=== PATIENT | female | born 1975 | race Caucasian/White ===

== ENCOUNTER 2016-11-09 00:32 | Emergency (ER) | payer MEDICARE, OTHER ==
[~2016-11-09] VITALS: Ht 167.6 cm; Wt 111.0 kg
[~2016-11-09 00:32] MED LIST: ASEN1SUB SL; SOMA350T PO
[2016-11-09 00:40] VITALS: BP 141/63; PULSE 114; RESP 14; TEMP 99.5; O2SAT 98
[2016-11-09] MEDS ORDERED: SOMA350T PO (01:14)
[2016-11-09 01:26] VITALS: BP 130/93; PULSE 109; RESP 18; O2SAT 99
[2016-11-09] MEDS ORDERED: SODIUM CHLORIDE 0.9% FLUSH 10 ML FLUSH IV FLUSH PRN (01:30)
[2016-11-09 01:44] LABS: AUTOMATED NEUTROPHIL # 7.6 TH/MM3 (1.8-7.7); BASOPHIL # 0.1 TH/MM3 (0-0.2); BASOPHIL % 0.9 % (0.0-2.0); EOSINOPHIL # 0.1 TH/MM3 (0-0.4); EOSINOPHIL % 1.1 % (0.0-4.0); HEMATOCRIT 45.1 % (35.0-46.0); HEMO FLAGS DIFF FINAL; LYMPH % 27.9 % (9.0-44.0); LYMPHOCYTE # 3.2 TH/MM3 (1.0-4.8); MEAN CORPUSCULAR HGB CONC 34.3 % (32.0-36.0); MONO % 4.2 % (0.0-8.0); NEUT % 65.9 % (16.0-70.0); PLATELET COUNT 474 TH/MM3 (150-450); RED CELL DISTRIBUTION WIDTH 14.2 % (11.6-17.2); WHITE BLOOD COUNT 11.5 TH/MM3 (4.0-11.0)
--- NOTE | 2016-11-09 01:48 | PD ---
HPI Chief Complaint: Abdominal Pain Time Seen by Provider: 01:20 Travel History International Travel<30 days: No Contact w/Intl Traveler<30days: No Traveled to known affect area: No History of Present Illness HPI This is a 41-year-old female who presents to the emergency department with right lower abdominal pain that's been going on for 3 days, constant, moderate severity, worse with movement, improved with rest, associated with a fever of 102 at home and multiple episodes of vomiting. The patient has a history of ovarian cysts and kidney stones in the past. She says she's never had pain like this before. She also reports that she's had some loose stools. She denies any dysuria, hematuria or vaginal discharge. PFSH Past Medical History Arthritis: Yes (RHEUMATOID) Bipolar Disorder: Yes Anxiety: Yes Depression: Yes Chest Pain: Yes Cerebrovascular Accident: Yes Diminished Hearing: No Genitourinary: Yes (KIDNEY STONES) Kidney Stones: Yes Musculoskeletal: Yes (CHRONIC BACK PAIN, "BLOWN DISCS") Reproductive: Yes (OVARIAN CYSTS) Respiratory: Yes (PULMONARY EMBOLUS) Immunizations Current: Yes Myocardial Infarction: Yes (X2) Schizophrenia: Yes ?: Not LMP: MORE THAN A YEAR PER PT : 0 Para: 0 Past Surgical History Cholecystectomy: Yes Social History Alcohol Use: No Tobacco Use: Yes (1 07/08 PPD) Substance Use: No Allergies-Medications (Allergen,Severity, Reaction): Coded Allergies: Amoxicillin (Verified Allergy, Severe, Hotflash, 11/09/16) Aspirin (Verified Allergy, Severe, Hives, 11/09/16) Compazine (Verified Allergy, Severe, Hives, 11/09/16) Contrast Media (Verified Allergy, Severe, Hives, 11/09/16) Keflex (Verified Allergy, Severe, Hives, 11/09/16) Morphine (Verified Allergy, Severe, Respiratory Failure, 11/09/16) Nitroglycerin (Verified Allergy, Severe, "ITCHY AND SLOW BREATHING", ) Phenergan (Verified Allergy, Severe, Hives, 11/09/16) Reglan (Verified Allergy, Severe, Hives, 11/09/16) Tramadol (Verified Allergy, Severe, Hives, 11/09/16) Uncoded Allergies: NSAIDS (Allergy, Severe, Hives, 05/09/13) Reported Meds & Prescriptions Reported Meds & Active Scripts Active Reported Soma (Carisoprodol) 350 Mg Tab 350 Mg PO QID PRN Review of Systems Except as stated in HPI: all other systems reviewed are Neg Physical Exam Narrative GENERAL:Well appearing, no acute distress SKIN: Focused skin assessment warm and dry. HEAD: Atraumatic. Normocephalic. EYES: Pupils equal and round. No injection or drainage. ENT: Moist mucous membranes NECK: Trachea midline. CARDIOVASCULAR: Tachycardic. No murmur appreciated. RESPIRATORY: Clear to auscultation. Breath sounds equal bilaterally. GASTROINTESTINAL: Abdomen soft, tender to palpation in right lower quadrant with guarding. MUSCULOSKELETAL: No obvious deformities. NEUROLOGICAL: Awake and alert. No obvious cranial nerve deficits. Moving all extremities. PSYCHIATRIC: Appropriate mood and affect; insight and judgment normal. Data Data Last Documented VS Vital Signs Date Time Temp Pulse Resp B/P Pulse Ox O2 Delivery O2 Flow Rate FiO2 11/09/16 01:26 109 18 130/93 99 Room Air 11/09/16 00:40 99.5 Orders Complete Blood Count With Diff (11/09/16 01:25) Comprehensive Metabolic Panel (11/09/16 01:25) Lipase (11/09/16 01:25) Urinalysis - C+S If Indicated (11/09/16 01:25) Iv Access Insert/Monitor (11/09/16 01:25) Ecg Monitoring (11/09/16 01:25) Oximetry (11/09/16 01:25) Sodium Chloride 0.9% Flush (Ns Flush) (11/09/16 01:30) Ed Urine Pregnancytest Poc (11/09/16 01:25) Ct Abd/Pel W/O Iv Contrast (11/09/16 ) Hydromorphone Pf Inj (Dilaudid Pf Inj) (11/09/16 02:00) Urine Culture (11/09/16 02:10) Ciprofloxacin 400 Mg Premix (Cipro 400 M (11/09/16 02:45) Hydromorphone Pf Inj (Dilaudid Pf Inj) (11/09/16 02:45) Ondansetron Inj (Zofran Inj) (11/09/16 02:45) Ns (Bolus) Inj (11/09/16 02:45) Labs Laboratory Tests Test 11/09/16 11/09/16 01:29 02:10 White Blood Count 11.5 TH/MM3 Red Blood Count 4.70 MIL/MM3 Hemoglobin 15.5 GM/DL Hematocrit 45.1 % Mean Corpuscular Volume 96.0 FL Mean Corpuscular Hemoglobin 33.0 PG Mean Corpuscular Hemoglobin 34.3 % Concent Red Cell Distribution Width 14.2 % Platelet Count 474 TH/MM3 Mean Platelet Volume 7.9 FL Neutrophils (%) (Auto) 65.9 % Lymphocytes (%) (Auto) 27.9 % Monocytes (%) (Auto) 4.2 % Eosinophils (%) (Auto) 1.1 % Basophils (%) (Auto) 0.9 % Neutrophils # (Auto) 7.6 TH/MM3 Lymphocytes # (Auto) 3.2 TH/MM3 Monocytes # (Auto) 0.5 TH/MM3 Eosinophils # (Auto) 0.1 TH/MM3 Basophils # (Auto) 0.1 TH/MM3 CBC Comment DIFF FINAL Differential Comment Sodium Level 142 MEQ/L Potassium Level 3.8 MEQ/L Chloride Level 108 MEQ/L Carbon Dioxide Level 23.1 MEQ/L Anion Gap 11 MEQ/L Blood Urea Nitrogen 12 MG/DL Creatinine 0.61 MG/DL Estimat Glomerular Filtration 108 ML/MIN Rate Random Glucose 91 MG/DL Calcium Level 9.5 MG/DL Total Bilirubin 0.2 MG/DL Aspartate Amino Transf 19 U/L (AST/SGOT) Alanine Aminotransferase 28 U/L (ALT/SGPT) Alkaline Phosphatase 114 U/L Total Protein 7.4 GM/DL Albumin 3.8 GM/DL Lipase 261 U/L Urine Color YELLOW Urine Turbidity CLOUDY Urine pH 5.5 Urine Specific Becker 1.029 Urine Protein TRACE mg/dL Urine Glucose (UA) NEG mg/dL Urine Ketones NEG mg/dL Urine Occult Blood TRACE Urine Nitrite NEG Urine Bilirubin NEG Urine Urobilinogen 2.0 MG/DL Urine Leukocyte Esterase SMALL Urine RBC 13 /hpf Urine WBC 22 /hpf Urine Squamous Epithelial 21 /hpf Cells Urine Amorphous Sediment RARE Urine Bacteria MOD /hpf Urine Mucus FEW /lpf Microscopic Urinalysis Comment CULTURE INDICATED MDM Medical Decision Making Medical Screen Exam Complete: Yes Emergency Medical Condition: Yes Interpretation(s) Temperature is 99.5, tachycardic, mild hypertension Mild leukocytosis Hemoconcentration Electrolytes are reassuring Lipase is normal Urinalysis: Some white blood cells, moderate bacteria CT abdomen and pelvis: No appendicitis Differential Diagnosis Appendicitis, urinary tract infection, gastroenteritis, colitis, diverticulitis , cholecystitis Narrative Course This is a 41-year-old female who presents to the emergency department with right lower quadrant abdominal pain. She is placed on a monitor and an IV was established. Labs demonstrate a mild leukocytosis. CT abdomen and pelvis was obtained which was reassuring with no evidence of appendicitis. Patient has no risk factors for pelvic inflammatory disease. Her urinalysis demonstrates some bacteria which is act as the sorts of her symptoms. Patient will be discharged on antibiotics for cystitis Diagnosis Primary Impression: Cystitis Patient Instructions: General Instructions Additional Instructions: If you develop fever, persistent vomiting, back pain, or inability to eat return to the emergency department as your urine infection may have progressed to a kidney infection. Complete your antibiotics as prescribed. Stay well hydrated with Gatorade or water. Followup with your primary care physician in 2-3 days if your symptoms have not resolved. Med/Other Pt SpecificInfo: Prescription(s) given Scripts Ondansetron Odt (Zofran Odt)4 Mg Tab4 Mg SL Q6HR PRN (Nausea/Vomiting) #15 TAB Ref 0 Prov:Mckayla Shaffer MD 11/09/16 Ciprofloxacin 250 Mg [id number] Mg PO BID 3 Days Ref 0 Prov:Mckayla Shaffer MD 11/09/16 Disposition: 01 DISCHARGE HOME Condition: Stable Mckayla Shaffer MD November 09, 2016 01:48
[2016-11-09] MEDS ORDERED: HYDROmorphone HCL PF 1 MG/ML VIAL IV PUSH ONE ×2 (02:00→02:45)
[2016-11-09 02:17] LABS: ALKALINE PHOSPHATASE 114 U/L (45-117); TOTAL BILIRUBIN ADULT 0.2 MG/DL (0.2-1.0)
[2016-11-09 02:23] LABS: BACTERIA, URINE MOD /hpf; BLOOD, URINE TRACE (NEG); COMMENT (UR) CULTURE INDICATED; CULTURE IF INDICATED CULTURE INDICATED; GLUCOSE,URINE NEG (NEG); KETONE, URINE NEG (NEG); MUCUS URINE FEW /lpf (OCC); NITRITE,URINE NEG (NEG); PH, URINE 5.5 (5.0-8.5); SQUAMOUS EPITHELIAL CELL URINE 21 /hpf (0-5); URINE COLOR YELLOW (YELLW/STRAW)
[2016-11-09 02:26] LABS: ALT (GPT) 28 U/L (10-53); ANION GAP 11 MEQ/L (5-15); AST (GOT) 19 U/L (15-37); BICARBONATE 23.1 MEQ/L (21.0-32.0); BLOOD UREA NITROGEN 12 MG/DL (7-18); CHLORIDE 108 MEQ/L (98-107); GLOMERULAR FILTRATION RATE 108 ML/MIN (>89); POTASSIUM 3.8 MEQ/L (3.5-5.1); SODIUM (NA) 142 MEQ/L (136-145)
--- NOTE | 2016-11-09 02:29 | RADRPT ---
EXAM DATE/TIME: 11/09/2016 02:12 [facility] COMPARISON: CT ABDOMEN & PELVIS W/O CONTRAST, June 08, 2014, 5:18. INDICATIONS : Right lower quadrant pain; possible appendicitis. ORAL CONTRAST: No oral contrast ingested. RADIATION DOSE: 18.10 CTDIvol (mGy) MEDICAL HISTORY : Myocardial infarction. Cerebrovascular disease. PE, ovarian cysts SURGICAL HISTORY : Cholecystectomy. ENCOUNTER: Initial ACUITY: 1 day PAIN SCALE: 7/10 LOCATION: Right lower quadrant abdomen TECHNIQUE: Volumetric scanning of the abdomen and pelvis was performed. Using automated exposure control and ad justment of the mA and/or kV according to patient size, radiation dose was kept as low as reasonably achievable to obtain optimal diagnostic quality images. FINDINGS: LOWER LUNGS: The visualized lower lungs are clear. LIVER: Homogeneous density without lesion. There is no dilation of the biliary tree. Cholecystectomy clips. SPLEEN: Normal size without lesion. PANCREAS: Within normal limits. KIDNEYS: Normal in size and shape. There is no mass, stone, or hydronephrosis. ADRENAL GLANDS: Within normal limits. VASCULAR: There is no aortic aneurysm. BOWEL/MESENTERY: The stomach, small bowel, and colon demonstrate no acute abnormality. There is no free intraperitone al air or fluid. The appendix is normal. ABDOMINAL WALL: Within normal limits. RETROPERITONEUM: There is no lymphadenopathy. BLADDER: No wall thickening or mass. REPRODUCTIVE: Within normal limits. INGUINAL: There is no lymphadenopathy or hernia. MUSCULOSKELETAL: Within normal limits for patient age. CONCLUSION: 1. No acute inflammatory process. 2. Normal appendix. 3. Status post cholecystectomy. Guy Marques MD on November 09, 2016 at 2:24 Board Certified Radiologist. This report was verified electronically.
[2016-11-09 02:35] VITALS: BP 113/68; PULSE 108; RESP 17; O2SAT 100
[2016-11-09] MEDS ORDERED: CIPR250T2 PO (02:43)
[2016-11-09] MEDS ORDERED: ZOFR4TAB3 SL (02:43)
[2016-11-09] MEDS ORDERED: ONDANSETRON HCL 4 MG/2 ML VIAL IV PUSH ONE (02:45)
[2016-11-09] MEDS ORDERED: CIPROFLOXACIN 400 MG PREMIX 200 ML IV ONE (02:45)
[2016-11-09] MEDS ORDERED: SODIUM CHLOR 0.9% 1000 ML INJ 1,000 ML IV ONE (02:45)
[2016-11-09 03:49] VITALS: BP 130/78
== END 2016-11-09 03:50 | disposition home or self-care (01) ==
LOC: NEPE 00:32
DX: N30.90 Cystitis, unspecified without hematuria (principal); B96.89 Other specified bacterial agents as the cause of diseases classified elsewhere
CPT/HCPCS: 74176; 80053; 81001; 83690; 84703; 85025; 87086; 96365; 96375; 96376; 99284; J0744; J1170; J2405; J7030

== ENCOUNTER 2017-02-25 19:53 | Emergency (ER) | payer MEDICARE, OTHER ==
[~2017-02-25] VITALS: Ht 167.6 cm; Wt 96.0 kg
[~2017-02-25 19:53] MED LIST changes: -ASEN1SUB SL; +CIPR250T2 PO; +ZOFR4TAB3 SL
[2017-02-25 19:55] VITALS: BP 139/69; PULSE 126; RESP 20; TEMP 98.2; O2SAT 98
[2017-02-25 20:17] VITALS: BP 134/98; PULSE 124; RESP 16; O2SAT 98
[2017-02-25 20:26] VITALS: BP 143/83; PULSE 125; RESP 20; O2SAT 98
[2017-02-25] MEDS ORDERED: HYDROmorphone HCL PF 1 MG/ML VIAL IV PUSH ONE ×2 (20:30→21:30)
[2017-02-25] MEDS ORDERED: ONDANSETRON HCL 4 MG/2 ML VIAL IV PUSH ONE (20:30)
--- NOTE | 2017-02-25 20:32 | PD ---
HPI Chief Complaint: Chest Pain Time Seen by Provider: 20:20 Travel History International Travel<30 days: No Contact w/Intl Traveler<30days: No Traveled to known affect area: No History of Present Illness HPI 41- year old female presents to the ED complaining of chest pain. The patient reports that her left sided chest pain started about 30 minutes ago and she has associated shortness of breath. She reports that the shortness of breath is worse with exertion and laying down. She reports no radiation of the pain and currently rates it as a 10/10. She states she has not taken anything for the pain due to her long list of allergies. She reports a PMHx of PE and W[place] in 2003. The patient reports smoking, but denies any alcohol or drug use. She reports she recently drove back from [place]. PFS Past Medical History Arthritis: Yes (RHEUMATOID) Bipolar Disorder: Yes Anxiety: Yes Depression: Yes Chest Pain: Yes Cerebrovascular Accident: Yes Diminished Hearing: No Deep Vein Thrombosis: Yes (PE) Genitourinary: Yes (KIDNEY STONES) Kidney Stones: Yes Musculoskeletal: Yes (CHRONIC BACK PAIN, "BLOWN DISCS") Reproductive: Yes (OVARIAN CYSTS) Respiratory: Yes (PULMONARY EMBOLUS) Immunizations Current: Yes Myocardial Infarction: Yes (X1) Schizophrenia: Yes Tetanus Vaccination: Unknown Influenza Vaccination: Yes ?: Not Menopausal: Yes : 0 Para: 0 Ovarian Cysts: Yes Past Surgical History Cholecystectomy: Yes Social History Alcohol Use: No Tobacco Use: Yes (07/08 PPD) Substance Use: No Allergies-Medications (Allergen,Severity, Reaction): Coded Allergies: amoxicillin (Unverified Allergy, Severe, Hotflash, 02/25/17) aspirin (Unverified Allergy, Severe, Hives, 02/25/17) cephalexin (Unverified Allergy, Severe, Hives, 02/25/17) diatrizoate meglumine (Unverified Allergy, Severe, Hives, 02/25/17) gadobenic acid (Unverified Allergy, Severe, Hives, 02/25/17) gadodiamide (Unverified Allergy, Severe, Hives, 02/25/17) gadoteridol (Unverified Allergy, Severe, Hives, 02/25/17) iodixanol (Unverified Allergy, Severe, Hives, 02/25/17) iohexol (Unverified Allergy, Severe, Hives, 02/25/17) metoclopramide (Unverified Allergy, Severe, Hives, 02/25/17) morphine (Unverified Allergy, Severe, Respiratory Failure, 02/25/17) nitroglycerin (Unverified Allergy, Severe, "ITCHY AND SLOW BREATHING", ) prochlorperazine (Unverified Allergy, Severe, Hives, 02/25/17) promethazine (Unverified Allergy, Severe, Hives, 02/25/17) tramadol (Unverified Allergy, Severe, Hives, 02/25/17) Uncoded Allergies: NSAIDS (Allergy, Severe, Hives, 05/09/13) Reported Meds & Prescriptions Reported Meds & Active Scripts Active Reported Hydromorphone (Hydromorphone HCl) 4 Mg Tab 4 Mg PO Q4H PRN Review of Systems General / Constitutional: No: Fever, Chills, Weight Gain, Weight Loss, Other Eyes: No: Diploplia, Blurred Vision, Photophobia, Drainage, Redness, Foreign Body Sensation, Pain, Tearing, Blind Spots, Visual changes, Blindness, Other HENT: No: Headaches, Vertigo, Lightheadedness, Sore Throat, Rhinitis, Rhinorrhea, Congestion, Nosebleed, Neck Stiffness, Neck Pain, Masses, Gingival Bleeding, Dental Difficulties, Ear Discharge, Earache, Other Cardiovascular: Positive: Chest Pain or Discomfort, No: Palpitations, Irregular Rhythm, Tachycardia, Diaphoresis, Syncope, Dyspnea on exertion, Varicosities, Edema, Cyanosis, Varicosities, Phlebitis, Claudication, Other Respiratory: Positive: Shortness of Breath, No: Cough, Wheezing, Sneezing, Orthopnea, Hemoptysis, Stridor, Night Sweats, Pleuritic Pain, Other Gastrointestinal: No: Nausea, Vomiting, Diarrhea, Abdominal Pain, Hematemesis, Hematochezia, Constipation, Changes in Bowel Habits, Indigestion, Dysphagia, Loss of Appetite, Other Genitourinary: No: Urgency, Frequency, Dysuria, Nocturia, Hematuria, Decreased Urinary Output, Oliguria, Hesitancy, Dribbling, Incontinence, Pelvic Pain, Flank Pain, Dyspareunia, Discharge, Dysmenorrhea, Menorrhagia, Metorrhagia, Vaginal Bleeding, Other Musculoskeletal: No: Myalgias, Arthralgias, Limited ROM, Weakness, Cramping, Edema, Pain, Atrophy, Other Skin: No Rash, No Itching, No Dryness, No Lumps, No Hives, No Change in Pigmentation, No Change in nails, No Alopecia, No Lesions, No Breast Lumps, No Breast Tenderness, No Breast Swelling, No Other Neurologic: No: Weakness, Dizziness, Syncope, Focal Abnormalities, Coordination Problem, Tremor, Ataxia, Headache, Change in Mentation, Slurred Speech, Paresthesia, Incontinence, Seizures, Sensory Disturbance, Other Psychiatric: No: Anxiety, Depression, Suicidal Ideations, Disorder of Thought, Mood Disorder, Substance Abuse, Homicidal Ideation, Other Endocrine: No: Heat Intolerance, Cold Intolerance, Polyuria, Polydipsia, Other Hematologic/Lymphatic: No: Easy Bruising, Lymph Node Enlargement, Other Physical Exam Narrative GENERAL: SKIN: Warm and dry. HEAD: Atraumatic. Normocephalic. EYES: Pupils equal and round. No scleral icterus. No injection or drainage. ENT: No nasal bleeding or discharge. Mucous membranes pink and moist. NECK: Trachea midline. No JVD. CARDIOVASCULAR: Tachycardic. Regular rate and rhythm. No S3, S4, or murmurs. RESPIRATORY: No accessory muscle use. Clear to auscultation. Breath sounds equal bilaterally. No rales, rhonchi, or wheezing. GASTROINTESTINAL: Abdomen soft, non-tender, nondistended. Hepatic and splenic margins not palpable. MUSCULOSKELETAL: Mild edema to left lower extremity. Extremities without clubbing, cyanosis. No obvious deformities. NEUROLOGICAL: Awake and alert. No obvious cranial nerve deficits. Motor grossly within normal limits. Five out of 5 muscle strength in the arms and legs. Normal speech. PSYCHIATRIC: Appropriate mood and affect; insight and judgment normal. Data Data Last Documented VS Vital Signs Date Time Temp Pulse Resp B/P (MAP) Pulse Ox O2 Delivery O2 Flow Rate FiO2 02/25/17 21:35 118 18 133/85 (101) 97 Room Air 02/25/17 19:55 98.2 Orders Orders Electrocardiogram (02/25/17 19:55) Basic Metabolic Panel (Bmp) (02/25/17 19:55) Ckmb (Isoenzyme) Profile (02/25/17 19:55) Complete Blood Count With Diff (02/25/17 19:55) Magnesium (Mg) (02/25/17 19:55) Prothrombin Time / Inr (Pt) (02/25/17 19:55) Act Partial Throm Time (Ptt) (02/25/17 19:55) Troponin I (02/25/17 19:55) Chest, Single Ap (02/25/17 19:55) Ecg Monitoring (02/25/17 19:55) Bilateral Bp Monitoring (02/25/17 19:55) Iv Access Insert/Monitor (02/25/17 19:55) Oximetry (02/25/17 19:55) Oxygen Administration (02/25/17 19:55) B-Type Natriuretic Peptide (02/25/17 20:18) Hydromorphone Pf Inj (Dilaudid Pf Inj) (02/25/17 20:30) Ondansetron Inj (Zofran Inj) (02/25/17 20:30) Ventilation & Perfusion Scan (02/25/17 ) Ed Urine Pregnancytest Poc (02/25/17 20:38) Sodium Chlor 0.9% 1000 Ml Inj (Ns 1000 M (02/25/17 20:53) Lipase (02/25/17 20:53) Hydromorphone Pf Inj (Dilaudid Pf Inj) (02/25/17 21:30) Ct Pulmonary Angiogram (02/25/17 ) Labs Laboratory Tests Test 02/25/17 20:25 White Blood Count 14.3 TH/MM3 Red Blood Count 4.97 MIL/MM3 Hemoglobin 15.9 GM/DL Hematocrit 48.6 % Mean Corpuscular Volume 97.8 FL Mean Corpuscular Hemoglobin 32.1 PG Mean Corpuscular Hemoglobin Concent 32.8 % Red Cell Distribution Width 14.0 % Platelet Count 482 TH/MM3 Mean Platelet Volume 7.7 FL Neutrophils (%) (Auto) 58.6 % Lymphocytes (%) (Auto) 32.5 % Monocytes (%) (Auto) 6.1 % Eosinophils (%) (Auto) 0.9 % Basophils (%) (Auto) 1.9 % Neutrophils # (Auto) 8.4 TH/MM3 Lymphocytes # (Auto) 4.7 TH/MM3 Monocytes # (Auto) 0.9 TH/MM3 Eosinophils # (Auto) 0.1 TH/MM3 Basophils # (Auto) 0.3 TH/MM3 CBC Comment DIFF FINAL Differential Comment Prothrombin Time 9.5 SEC Prothromb Time International Ratio 0.9 RATIO Activated Partial Thromboplast Time 27.2 SEC Blood Urea Nitrogen 15 MG/DL Creatinine 0.71 MG/DL Random Glucose 88 MG/DL Calcium Level 9.8 MG/DL Magnesium Level 2.5 MG/DL Sodium Level 139 MEQ/L Potassium Level 3.7 MEQ/L Chloride Level 107 MEQ/L Carbon Dioxide Level 23.8 MEQ/L Anion Gap 8 MEQ/L Estimat Glomerular Filtration Rate 90 ML/MIN Total Creatine Kinase 27 U/L Troponin I LESS THAN 0.02 NG/ML B-Type Natriuretic Peptide 9 PG/ML Lipase 314 U/L MDM Medical Decision Making Medical Screen Exam Complete: Yes Emergency Medical Condition: Yes Medical Record Reviewed: Yes Interpretation(s) CBC & BMP Diagram 02/25/17 20:25 Calcium Level 9.8, Magnesium Level 2.5 troponin negative Coags WNL CKMB negative CXR negative Differential Diagnosis PE versus DVT versus [place] versus CHF versus Chest pain Narrative Course 41-year-old female that presents to the ED for evaluation of chest pain. Patient was properly examined and was found to have signs and symptoms concerning for pulmonary embolism. She is tachycardic and she does have significant pain as well as history of [place] and PE in the past. Initial EKG did not show any sign of acute ischemia here. Labs were drawn and were essentially unremarkable. VQ scan was ordered to rule out PE. Patient was given pain medications here as well as antiemetics. Patient continues to ask for pain meds. Patient will not be given any more pain medicines until we better assess what medical condition she has. I was informed by ED nurse that before patient could get the VQ scan she wanted to leave AMA. Risk were given by ED nurse before I could see the patient. She still wanted to leave AMA. AMA: The risks of leaving against medical advice without further evaluation treatment were discussed with the patient. These risks include cardiac dysfunction, cardiac dysrhythmia, possible heart attack, possible stroke or . The patient indicated understanding of these risks and appeared to have the capacity to make this decision. Diagnosis Primary Impression: Left against medical advice Disposition: 07 AGAINST MEDICAL ADVICE Condition: Stable Ahmet Myers Feb 25, 2017 20:32
[2017-02-25 20:48] LABS: AUTOMATED NEUTROPHIL # 8.4 TH/MM3 (1.8-7.7); BASOPHIL # 0.3 TH/MM3 (0-0.2); BASOPHIL % 1.9 % (0.0-2.0); EOSINOPHIL # 0.1 TH/MM3 (0-0.4); EOSINOPHIL % 0.9 % (0.0-4.0); HEMATOCRIT 48.6 % (35.0-46.0); HEMO FLAGS DIFF FINAL; LYMPH % 32.5 % (9.0-44.0); LYMPHOCYTE # 4.7 TH/MM3 (1.0-4.8); MEAN CELL VOLUME 97.8 FL (80.0-100.0); MEAN CORPUSCULAR HEMOGLOBIN 32.1 PG (27.0-34.0); MEAN CORPUSCULAR HGB CONC 32.8 % (32.0-36.0); MONO % 6.1 % (0.0-8.0); NEUT % 58.6 % (16.0-70.0); PLATELET COUNT 482 TH/MM3 (150-450); RED BLOOD COUNT 4.97 MIL/MM3 (4.00-5.30); WHITE BLOOD COUNT 14.3 TH/MM3 (4.0-11.0)
[2017-02-25] MEDS ORDERED: SODIUM CHLOR 0.9% 1000 ML INJ 1,000 ML IV SCH (20:53)
[2017-02-25 20:58] LABS: APTT (PATIENT) 27.2 SEC (24.3-30.1); INTERNATIONAL NORMALIZED RATIO 0.9 RATIO; PROTHROMBIN TIME - PATIENT 9.5 SEC (9.8-11.6)
--- NOTE | 2017-02-25 21:09 | RADRPT ---
EXAM DATE/TIME: 02/25/2017 20:16 [facility] COMPARISON: CHEST SINGLE AP, June 24, 2014, 17:23. INDICATIONS : Chest pain and shortness of breath. MEDICAL HISTORY : Myocardial infarction. Cerebrovascular disease. PE, ovarian cysts. SURGICAL HISTORY : None. ENCOUNTER: Initial ACUITY: 1 day PAIN SCORE: 9/10 LOCATION: Bilateral chest FINDINGS: Portable AP view of the chest demonstrates a normal-sized cardiac silhouette. No effusion, consolidat ion, or pneumothorax is visualized. The bones and soft tissues demonstrate no acute abnormality. EKG lines overlie the patient. CONCLUSION: No acute cardiopulmonary abnormality is identified. Win Hurd MD on February 25, 2017 at 21:07 Board Certified Radiologist. This report was verified electronically.
[2017-02-25 21:13] LABS: ANION GAP 8 MEQ/L (5-15); BICARBONATE 23.8 MEQ/L (21.0-32.0); BLOOD UREA NITROGEN 15 MG/DL (7-18); CHLORIDE 107 MEQ/L (98-107); GLOMERULAR FILTRATION RATE 90 ML/MIN (>89); MAGNESIUM 2.5 MG/DL (1.5-2.5); POTASSIUM 3.7 MEQ/L (3.5-5.1); SODIUM (NA) 139 MEQ/L (136-145)
[2017-02-25 21:14] LABS: CREATINE KINASE 27 U/L (26-192)
[2017-02-25 21:35] VITALS: BP 133/85; PULSE 118; RESP 18; O2SAT 97
[2017-02-25] MEDS ORDERED: HYDR4TAB PO (22:07)
--- NOTE | 2017-02-26 19:46 | EKG ---
Date Performed: 02/25/2017 Time Performed: 20:01:38 PTAGE: 41 years EKG: SINUS TACHYCARDIA NONSPECIFIC T-WAVE ABNORMALITY ABNORMAL RHYTHM ECG PREVIOUS TRACING : 01/15/2016 00.51 Compared to prior tracing no significant change DOCTOR: Arianne Albert Interpretating Date/Time 02/26/2017 19:45:42
== END 2017-02-25 22:51 | disposition left against medical advice (07) ==
LOC: NEPC 19:53
DX: R07.9 Chest pain, unspecified (principal); R06.02 Shortness of breath; Z86.711 Personal history of pulmonary embolism; R94.31 Abnormal electrocardiogram [ECG] [EKG]; M06.9 Rheumatoid arthritis, unspecified
CPT/HCPCS: 71010; 80048; 82550; 83690; 83735; 83880; 84484; 84703; 85025; 85610; 85730; 93005; 96361; 96374; 96375; 96376; 99285; J1170; J2405; J7030

== ENCOUNTER 2017-05-14 18:00 | Emergency (ER) | payer MEDICARE, OTHER ==
[~2017-05-14 18:00] MED LIST changes: -CIPR250T2 PO; +HYDR4TAB PO; -SOMA350T PO; -ZOFR4TAB3 SL
[2017-05-14 18:11] VITALS: BP 134/98; PULSE 104; RESP 20; TEMP 98.4; O2SAT 98
[2017-05-14] MEDS ORDERED: ZITH250T PO (18:26)
--- NOTE | 2017-05-14 18:49 | PD ---
HPI Chief Complaint: Abdominal Pain Time Seen by Provider: 18:24 Travel History International Travel<30 days: No Contact w/Intl Traveler<30days: No Traveled to known affect area: No History of Present Illness HPI 41-year-old female complains of right low quadrant abdominal pain and nausea vomiting. Patient states the symptoms started last night. Patient states the pain is sharp pain localized to right low quadrant the abdomen. Patient denies any pain radiation. Patient denies any fever chills. Patient denies any dysuria or frequency. Patient denies any vaginal discharge or bleeding. Patient states that she has history of chronic back pain, ovarian cyst and kidney stone. Patient also has history anxiety, bipolar disorder, rheumatoid arthritis, CVA, GA,. Patient status post cholecystectomy. On a scale of 1-10 the pain is an 8. Patient is on chronic back pain medications. PFSH Past Medical History Arthritis: Yes (RHEUMATOID) Bipolar Disorder: Yes Anxiety: Yes Depression: Yes Chest Pain: Yes Diminished Hearing: No Deep Vein Thrombosis: Yes (PE) Genitourinary: Yes (KIDNEY STONES) Kidney Stones: Yes Musculoskeletal: Yes (CHRONIC BACK PAIN, "BLOWN DISCS") Reproductive: Yes (OVARIAN CYSTS) Respiratory: Yes (PULMONARY EMBOLUS) Immunizations Current: Yes Myocardial Infarction: Yes (X1) Schizophrenia: Yes ?: Not LMP: irregular Menopausal: Yes : 0 Para: 0 Ovarian Cysts: Yes Past Surgical History Cholecystectomy: Yes Social History Alcohol Use: No Tobacco Use: Yes (07/08 PPD) Substance Use: No Allergies-Medications (Allergen,Severity, Reaction): Coded Allergies: amoxicillin (Unverified Allergy, Severe, Hotflash, 05/14/17) aspirin (Unverified Allergy, Severe, Hives, 05/14/17) cephalexin (Unverified Allergy, Severe, Hives, 05/14/17) diatrizoate meglumine (Unverified Allergy, Severe, Hives, 05/14/17) gadobenic acid (Unverified Allergy, Severe, Hives, 05/14/17) gadodiamide (Unverified Allergy, Severe, Hives, 05/14/17) gadoteridol (Unverified Allergy, Severe, Hives, 05/14/17) iodixanol (Unverified Allergy, Severe, Hives, 05/14/17) iohexol (Unverified Allergy, Severe, Hives, 05/14/17) metoclopramide (Unverified Allergy, Severe, Hives, 05/14/17) morphine (Unverified Allergy, Severe, Respiratory Failure, 05/14/17) nitroglycerin (Unverified Allergy, Severe, "ITCHY AND SLOW BREATHING", 05/14/17) prochlorperazine (Unverified Allergy, Severe, Hives, 05/14/17) promethazine (Unverified Allergy, Severe, Hives, 05/14/17) tramadol (Unverified Allergy, Severe, Hives, 05/14/17) Uncoded Allergies: NSAIDS (Allergy, Severe, Hives, 05/09/13) Reported Meds & Prescriptions Reported Meds & Active Scripts Active Reported Zithromax (Azithromycin) 250 Mg Tab 250 Mg PO DIRECTED Take 2 tabs (500 mg) on day 1 then 1 tab daily x 4 days. Review of Systems General / Constitutional: No: Fever Eyes: No: Visual changes HENT: No: Headaches Cardiovascular: No: Chest Pain or Discomfort Respiratory: No: Shortness of Breath Gastrointestinal: Positive: Nausea, Vomiting, Abdominal Pain Genitourinary: No: Dysuria Musculoskeletal: No: Pain Skin: No Rash Neurologic: No: Weakness Psychiatric: No: Depression Endocrine: No: Polydipsia Hematologic/Lymphatic: No: Easy Bruising Physical Exam Narrative GENERAL: Well-nourished, well-developed patient. SKIN: Focused skin assessment warm/dry. HEAD: Normocephalic. EYES: No scleral icterus. No injection or drainage. NECK: Supple, trachea midline. No JVD or lymphadenopathy. CARDIOVASCULAR: Regular rate and rhythm without murmurs, gallops, or rubs. RESPIRATORY: Breath sounds equal bilaterally. No accessory muscle use. GASTROINTESTINAL: Abdomen soft, nondistended. Patient has mild to moderate tenderness on palpation right low quadrant of the abdomen. No rebound tenderness. No mass. MUSCULOSKELETAL: No cyanosis, or edema. BACK: Nontender without obvious deformity. No CVA tenderness. Neurologic exam normal. Data Data Last Documented VS Vital Signs Date Time Temp Pulse Resp B/P (MAP) Pulse Ox O2 Delivery O2 Flow Rate FiO2 05/14/17 18:11 98.4 104 20 134/98 (110) 98 Orders Orders Ed Discharge Order (05/14/17 18:41) [facility] Medical Decision Making Medical Screen Exam Complete: Yes Emergency Medical Condition: Yes Differential Diagnosis Differential diagnosis including UTI, pyelonephritis, nephrolithiasis, appendicitis, colitis, musculoskeletal. Narrative Course 41-year-old female with right low quadrant abdominal pain. Patient was seen in emergency room 5 months ago with the same problem. Workup was negative including CT scan abdomen pelvis. Patient was in emergency room 2 months ago and left AMA after requesting more pain medication. 1840 7 PM. Patient informed the nurse that she does not want to stay anymore for further up. Patient wants to go home. Patient refused x-ray blood tests and IV. Diagnosis Primary Impression: Abdominal pain Qualified Codes: R10.31 - Right lower quadrant pain Patient Instructions: General Instructions Additional Instructions: Follow-up local physician. Return if needed. Med/Other Pt SpecificInfo: No Change to Meds Disposition: 01 DISCHARGE HOME Condition: Stable Daniel Fountain MD May 14, 2017 18:49
== END 2017-05-14 18:55 | disposition home or self-care (01) ==
LOC: PHED 18:00
DX: R10.31 Right lower quadrant pain (principal); G89.29 Other chronic pain; F17.210 Nicotine dependence, cigarettes, uncomplicated; I25.2 Old myocardial infarction; Z87.442 Personal history of urinary calculi
CPT/HCPCS: 99281

== ENCOUNTER 2017-08-13 18:34 | Emergency (ER) | payer MEDICARE, OTHER ==
[~2017-08-13] VITALS: Ht 167.6 cm; Wt 102.0 kg
[~2017-08-13 18:34] MED LIST changes: -HYDR4TAB PO; +ZITH250T PO
[2017-08-13 18:35] VITALS: BP 140/99; PULSE 131; RESP 20; TEMP 99.1; O2SAT 98
[2017-08-13] MEDS ORDERED: PRED5TAB PO (23:28)
[2017-08-13] MEDS ORDERED: METH2.5T PO (23:28)
[2017-08-13] MEDS ORDERED: ETAN50CA IM (23:28)
[2017-08-13] MEDS ORDERED: LORA-474 PO (23:28)
[2017-08-13] MEDS ORDERED: ONDANSETRON HCL 4 MG/2 ML VIAL IV PUSH ONE (23:30)
[2017-08-13] MEDS ORDERED: HYDROmorphone HCL PF 2 MG/ML VIAL IV PUSH ONE (23:30)
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
== END 2017-08-14 05:36 | disposition home or self-care (01) ==
LOC: NEPD 18:34
DX: R10.30 Lower abdominal pain, unspecified (principal); Z53.21 Procedure and treatment not carried out due to patient leaving prior to being seen by health care provider; F31.9 Bipolar disorder, unspecified; I25.2 Old myocardial infarction; M06.9 Rheumatoid arthritis, unspecified; F17.210 Nicotine dependence, cigarettes, uncomplicated; F20.9 Schizophrenia, unspecified; Z86.711 Personal history of pulmonary embolism; Z86.73 Personal history of transient ischemic attack (TIA), and cerebral infarction without residual deficits
CPT/HCPCS: 96374; 96375; 99284; J1170; J2405

== ENCOUNTER 2018-06-21 17:12 | Observation (INO) ==
[2018-06-21] MEDS ORDERED: Morphine Sulfate Inj 2 MG/ML Vial IV.PUSH ONE ×2 (17:29→18:33)
[2018-06-21] MEDS ORDERED: MethylPREDNISolone Sod Succinate Inj 125 MG/2 ML Vial IV.PUSH ONE (17:29)
--- NOTE | 2018-06-21 17:53 | ED ---
HPI General Chief Complaint: Chest Pain Stated Complaint: Chest pain prob breathing Time Seen by Provider: 06/21/18 17:29 Source: patient Mode of arrival: ambulatory Limitations: no limitations History of Present Illness HPI narrative: 42-year-old female patient with previous history of PE, not currently on any blood thinners, recent history of possible COPD, presents to the ER today because she is having chest discomfort and shortness of breath over the last few days. She denies any fevers or any other issues. modifying Factors: None Associated Signs & Symptoms: Chest pains, shortness of breath Risk Factors: PE history Related Data Home Medications Medication Instructions Recorded Confirmed leflunomide [Arava] 20 mg PO DAILY 05/03/18 06/21/18 prednisolone 5 mg PO DAILY 05/03/18 06/21/18 azithromycin 250 mg PO DAILY 06/21/18 06/21/18 fluticasone-vilanterol [Breo 1 inh INHALATION DAILY 06/21/18 06/21/18 Ellipta] glimepiride 2 mg PO QAM 06/21/18 06/21/18 leflunomide 20 mg PO DAILY 06/21/18 06/21/18 lorazepam 1 mg PO BID 06/21/18 06/21/18 methotrexate 10 mg/m2 PO QWEEK 06/21/18 06/21/18 prednisone 5 mg PO BID 06/21/18 06/21/18 theophylline 300 mg PO Q12H 06/21/18 06/21/18 umeclidinium [Incruse Ellipta] 1 inh INHALATION DAILY 06/21/18 06/21/18 Allergies Allergy/AdvReac Type Severity Reaction Status Date / Time amoxicillin Allergy Severe Hotflash Verified 06/21/18 17:17 aspirin Allergy Severe Hives Verified 06/21/18 17:17 cephalexin Allergy Severe Hives Verified 06/21/18 17:17 metoclopramide Allergy Severe Hives Verified 06/21/18 17:17 nitroglycerin Allergy Severe "ITCHY AND Verified 06/21/18 17:17 SLOW BREATHING" prochlorperazine Allergy Severe Hives Verified 06/21/18 17:17 promethazine Allergy Severe Hives Verified 06/21/18 17:17 tramadol Allergy Severe Hives Verified 06/21/18 17:17 NSAIDS Allergy Severe Hives Uncoded 06/21/18 17:17 Review of Systems ROS: all other systems reviewed are negative [facility] Medical History Medical History Anxiety (Acute) Bipolar 1 disorder (Acute) Depression (Acute) Kidney stones (Acute) Ovarian cyst (Acute) Pulmonary embolism (Acute) Schizophrenia (Acute) Social History Social History Substance History: No History of Abuse Second Hand Smoke Exposure: Yes Smoking Status: Current every day smoker Tobacco Type: Cigarettes How Often Do You Have a Drink Containing Alcohol: Never Recent Travel in [facility] within the Last 8 Weeks: No Recent Out of Country Travel within the Last 8 Weeks: No Immunization History Tetanus Immunization: >5 Years Exam Narrative Exam Narrative: GENERAL: Female patient currently and moderate distress. Awake and oriented x3. SKIN: Focused skin assessment warm/dry. HEAD: Atraumatic. Normocephalic. EYES: Pupils equal and round. No scleral icterus. No injection or drainage. ENT: No nasal bleeding or discharge. Mucous membranes pink and moist. NECK: Trachea midline. No JVD. Supple. CARDIOVASCULAR: Regular rate and rhythm. No murmur appreciated. RESPIRATORY: No accessory muscle use. Clear to auscultation. Breath sounds equal bilaterally. GASTROINTESTINAL: Abdomen soft, non-tender, nondistended. Hepatic and splenic margins not palpable. MUSCULOSKELETAL: No obvious deformities. No clubbing. No cyanosis. No edema. NEUROLOGICAL: Awake and alert. No obvious cranial nerve deficits. Motor grossly within normal limits. Normal speech. PSYCHIATRIC: Appropriate mood and affect; insight and judgment normal. Course Initial Documented Vital Signs Temperature 98.4 F 06/21/18 17:14 Pulse Rate 141 H 06/21/18 17:14 Respiratory Rate 26 H 06/21/18 17:14 Blood Pressure 185/77 H 06/21/18 17:14 Pulse Oximetry 98 06/21/18 17:14 Last Documented Vital Signs Temperature 97.9 F 06/21/18 18:17 Pulse Rate 126 H 06/21/18 18:17 Respiratory Rate 18 06/21/18 18:17 Blood Pressure 154/87 H 06/21/18 18:17 Pulse Oximetry 96 06/21/18 18:17 Medical Decision Making MDM Narrative Medical decision making narrative: EKG did not show significant dysrhythmias. Had no signs of significant ST acute changes. Patient has some mild wheezing on evaluation nebulizers were given and it resolved. Lab work was fairly unremarkable with negative troponins. Chest x-ray was negative. D-dimer is negative. BNP is within normal limits. Case was initially discussed with Dr. Wallace who states that this can still be admitted to the chest pain center. Medical Screen Exam Complete: Yes Emergency Medical Condition: Yes Differential Diagnosis Differential Diagnosis: Dysrhythmias versus COPD exacerbation versus pneumonia versus PE Lab Data Lab results reviewed: Yes I reviewed the patient's lab results. Result diagrams: 06/21/18 17:40 06/21/18 17:40 Lab Results 06/21/18 06/21/18 06/21/18 Range/Units 17:34 17:40 17:40 WBC 6.9 (4.0-11.0) th/mm3 RBC 4.35 (4.00-5.30) mil/mm3 Hgb 15.0 (11.6-15.3) gm/dL Hct 43.9 (35.0-46.0) % MCV 101.0 H (80.0-100.0) fL MCH 34.6 H (27.0-34.0) pg MCHC 34.3 (32.0-36.0) % RDW 15.6 (11.6-17.2) % Plt Count 314 (150-450) th/mm3 MPV 7.8 (7.0-11.0) fL Neut % (Auto) 72.5 H (16.0-70.0) % Lymph % (Auto) 21.5 (9.0-44.0) % [place] % (Auto) 5.5 (0.0-8.0) % Eos % (Auto) 0.3 (0.0-4.0) % Baso % (Auto) 0.2 (0.0-2.0) % Neut # (Auto) 5.0 (1.8-7.7) th/mm3 Lymph # (Auto) 1.5 (1.0-4.8) th/mm3 [place] # (Auto) 0.4 (0.0-0.9) th/mm3 Eos # (Auto) 0.0 (0.0-0.4) th/mm3 Baso # (Auto) 0.0 (0.0-0.2) th/mm3 WBC Differential . Differential Comment Auto diff final D-Dimer Quant (PE/DVT) 0.51 H (0.00-0.50) mg/L FEU Sodium (136-145) meq/L Potassium (3.5-5.1) meq/L Chloride (98-107) meq/L Carbon Dioxide (21.0-32.0) meq/L Anion Gap (5-15) meq/L BUN (7-18) mg/dL Creatinine (0.50-1.00) mg/dL Estimated GFR (>89) mL/min POC Glucose 155 H (68-110) mg/dl Random Glucose (74-106) mg/dL Calcium (8.5-10.1) mg/dL Total Bilirubin (0.2-1.0) mg/dL AST (15-37) U/L ALT (10-53) U/L Alkaline Phosphatase (45-117) U/L Troponin I (0.02-0.05) ng/mL B-Natriuretic Peptide (0-100) pg/mL Total Protein (6.4-8.2) g/dL Albumin (3.4-5.0) g/dL 06/21/18 06/21/18 Range/Units 17:40 17:40 WBC (4.0-11.0) th/mm3 RBC (4.00-5.30) mil/mm3 Hgb (11.6-15.3) gm/dL Hct (35.0-46.0) % MCV (80.0-100.0) fL MCH (27.0-34.0) pg MCHC (32.0-36.0) % RDW (11.6-17.2) % Plt Count (150-450) th/mm3 MPV (7.0-11.0) fL Neut % (Auto) (16.0-70.0) % Lymph % (Auto) (9.0-44.0) % [place] % (Auto) (0.0-8.0) % Eos % (Auto) (0.0-4.0) % Baso % (Auto) (0.0-2.0) % Neut # (Auto) (1.8-7.7) th/mm3 Lymph # (Auto) (1.0-4.8) th/mm3 [place] # (Auto) (0.0-0.9) th/mm3 Eos # (Auto) (0.0-0.4) th/mm3 Baso # (Auto) (0.0-0.2) th/mm3 WBC Differential Differential Comment D-Dimer Quant (PE/DVT) (0.00-0.50) mg/L FEU Sodium 140 (136-145) meq/L Potassium 3.8 (3.5-5.1) meq/L Chloride 107 (98-107) meq/L Carbon Dioxide 26.4 (21.0-32.0) meq/L Anion Gap 7 (5-15) meq/L BUN 10 (7-18) mg/dL Creatinine 0.80 (0.50-1.00) mg/dL Estimated GFR 78 L (>89) mL/min POC Glucose (68-110) mg/dl Random Glucose 141 H (74-106) mg/dL Calcium 8.5 (8.5-10.1) mg/dL Total Bilirubin 0.3 (0.2-1.0) mg/dL AST 22 (15-37) U/L ALT 37 (10-53) U/L Alkaline Phosphatase 113 (45-117) U/L Troponin I Less than 0.02 L (0.02-0.05) ng/mL B-Natriuretic Peptide 23 (0-100) pg/mL Total Protein 7.4 (6.4-8.2) g/dL Albumin 3.6 (3.4-5.0) g/dL Imaging Data Attestation: I personally reviewed and interpreted this imaging study as follows : Radiologist's impression: Chest X-Ray 06/21/18 17:29 CONCLUSION: No acute cardiopulmonary disease. ECG Data Attestation: I personally reviewed and interpreted this ECG as follows: Interpretation: EKG shows NSR, no ST elevation or depression, and no arrhythmias. No significant T-wave inversions. Discharge Plan Discharge Order Discharge Orders: ED Use Only Admit Order (Routine); Ordered 06/21/18 Ordered By: Maria Esther Bailon Discharge Details Anticipated Discharge Date: 06/21/18 Physicians Team ED Provider: Maria Esther Bailon Primary Care Provider: Primary Care Physici,No Attending Provider: Josh Lundberg Rxs /Orders / Referrals /Forms Prescriptions: No Action azithromycin 250 mg Tablet 250 mg PO DAILY RF: 0 prednisone 5 mg Tablet 5 mg PO BID RF: 0 leflunomide 20 mg Tablet 20 mg PO DAILY RF: 0 glimepiride 2 mg Tablet 2 mg PO QAM RF: 0 theophylline 300 mg Tablet Extended Release 12 Hr 300 mg PO Q12H RF: 0 lorazepam 1 mg Tablet 1 mg PO BID RF: 0 umeclidinium [Incruse Ellipta] 62.5 mcg/actuation Blister With Device 1 inh INHALATION DAILY RF: 0 fluticasone-vilanterol [Breo Ellipta] 200-25 mcg/dose Blister With Device 1 inh INHALATION DAILY RF: 0 methotrexate 2.5 mg/mL Solution 10 mg/m2 PO QWEEK RF: 0 leflunomide [Arava] 20 mg Tablet 20 mg PO DAILY RF: 0 prednisolone 5 mg Tablet 5 mg PO DAILY RF: 0 Status ED Status: With Doctor
--- NOTE | 2018-06-21 17:56 | XR ---
EXAM DATE: 06/21/2018 5:52 PM EST AGE/SEX: 42 years / Female INDICATIONS: Patient presents with shortness of breath and history of COPD. CLINICAL DATA: This is the patient's initial encounter. Patient reports that signs and symptoms have been present for 1 day and indicates a pain score of 3/10. MEDICAL/SURGICAL HISTORY: . Chronic obstructive pulmonary disease. Diabetes. None. [place] [facility] [place]. . FINDINGS: The lungs are clear without infiltrate, nodule, or mass. There is no appreciable pleural effusion fo r technique. Heart and mediastinum are unremarkable. CONCLUSION: No acute cardiopulmonary disease. Electronically signed by: Arin Marshall MD Board Certified Radiologist 06/21/2018 5:55 PM EST
[2018-06-21 17:57] LABS: Baso % (Auto) 0.2 % (0.0-2.0); Eos % (Auto) 0.3 % (0.0-4.0); Hematocrit 43.9 % (35.0-46.0); Lymph # (Auto) 1.5 th/mm3 (1.0-4.8); Lymph % (Auto) 21.5 % (9.0-44.0); Mean Corpuscular HGB Conc 34.3 % (32.0-36.0); Mean Corpuscular Hemoglobin 34.6 pg (27.0-34.0); Mean Platelet Volume 7.8 fL (7.0-11.0); Mono # (Auto) 0.4 th/mm3 (0.0-0.9); Mono % (Auto) 5.5 % (0.0-8.0); Neut % (Auto) 72.5 % (16.0-70.0); Platelet Count 314 th/mm3 (150-450); Red Blood Count 4.35 mil/mm3 (4.00-5.30); Red Cell Distribution Width 15.6 % (11.6-17.2); White Blood Count 6.9 th/mm3 (4.0-11.0)
[2018-06-21 18:18] VITALS: BP 154/87; PULSE 126; TEMP 97.9
[2018-06-21 18:20] LABS: Alkaline Phosphatase 113 U/L (45-117); Total Protein 7.4 g/dL (6.4-8.2)
[2018-06-21 18:29] LABS: Alanine Aminotransferase 37 U/L (10-53); Albumin 3.6 g/dL (3.4-5.0); Anion Gap 7 meq/L (5-15); Aspartate Aminotransferase 22 U/L (15-37); Blood Urea Nitrogen 10 mg/dL (7-18); Calcium 8.5 mg/dL (8.5-10.1); Carbon Dioxide 26.4 meq/L (21.0-32.0); Chloride 107 meq/L (98-107); Glomerular Filtration Rate 78 mL/min (>89); Glucose,Random 141 mg/dL (74-106); Potassium 3.8 meq/L (3.5-5.1); Sodium 140 meq/L (136-145)
[2018-06-21 19:17] VITALS: RESP 20; O2SAT 95
--- NOTE | 2018-06-22 07:27 | ECG ---
Date Performed: 06/21/2018 Time Performed: 17:23:34 PTAGE: 42 years EKG: SINUS TACHYCARDIA WITH SHORT SD INTERVAL POSSIBLE RIGHT VENTRICULAR CONDUCTION DELAY NONSPE CIFIC T-WAVE ABNORMALITY ABNORMAL RHYTHM ECG PREVIOUS TRACING : 05/03/2018 20.00 Since previous tracing, no significant change noted DOCTOR: Sanju Raya Interpretating Date/Time 06/22/2018 07:26:02
== END 2018-06-21 21:11 | disposition left against medical advice (07) ==
LOC: NEDA 17:12 → NEPE 17:12 → NEDA 21:10
PROVIDERS: ADMIT Internal Medicine Interventional Cardiology; ATTEND Internal Medicine Interventional Cardiology